=== PATIENT | male | born 1940 | race Two or more races ===

== ENCOUNTER 2019-11-22 12:05 | Inpatient (IN) | payer OTHER ==
[~2019-11-22] VITALS: Ht 162.6 cm; Wt 68.5 kg
[2019-11-28] MEDS ORDERED: PLAVIX75 MG PO (14:34)
[2019-11-28] MEDS ORDERED: SYNTHROID50 MCG PO (14:34)
[2019-11-28] MEDS ORDERED: ACTOS15 MG PO (14:35)
[2019-11-28] MEDS ORDERED: PRAVASTATIN SOD10 MG PO (14:35)
[2019-11-28] MEDS ORDERED: TOPROL XL25 M1 PO (14:36)
[2019-11-28] MEDS ORDERED: JANUVIA25 MG PO (14:36)
[2019-12-04] MEDS ORDERED: JANUVIA100 MG (10:53)
[2019-12-04] MEDS ORDERED: LEVOTHYROXINE25 MC1 (10:53)
[2019-12-04] MEDS ORDERED: PIOGLITAZONE HC30 MG (10:54)
[2019-12-04] MEDS ORDERED: CLOPIDOGREL BIS75 MG (10:54)
[2019-12-04] MEDS ORDERED: PANTOPRAZOLE SO40 MG (10:54)
[2019-12-04] MEDS ORDERED: LOPRESSOR25 MG (10:55)
[2019-12-04] MEDS ORDERED: PRAVASTATIN SOD40 MG (10:55)
[2019-12-13] MEDS ORDERED: LEVAQUIN500 MG PO (13:10)
[2019-12-13] MEDS ORDERED: FLAGYL500MG PO (13:10)
== END 2019-12-13 15:11 | disposition home or self-care (01) | DRG 330 ==
LOC: O/R 12-04 07:36 → SURG 12-04 07:36 → SURH 12-04 09:15 → SURG 12-04 16:21
PROVIDERS: ADMIT Surgery; ATTEND Surgery
PROC: 07TB0ZZ Resection of Mesenteric Lymphatic, Open Approach (ICD-10-PCS; 2019-12-04)
PROC: 0DBU0ZZ Excision of Omentum, Open Approach (ICD-10-PCS; 2019-12-04)
PROC: 0DTF0ZZ Resection of Right Large Intestine, Open Approach (ICD-10-PCS; principal; 2019-12-04 09:15)
PROC: 4A12X4Z Monitoring of Cardiac Electrical Activity, External Approach (ICD-10-PCS; 2019-12-05)
PROC: 4A033R1 Measurement of Arterial Saturation, Peripheral, Percutaneous Approach (ICD-10-PCS; 2019-12-05)
PROC: 05HY33Z Insertion of Infusion Device into Upper Vein, Percutaneous Approach (ICD-10-PCS; 2019-12-08)
PROC: 30233P1 Transfusion of Nonautologous Frozen Red Cells into Peripheral Vein, Percutaneous Approach (ICD-10-PCS; 2019-12-09)
PROC: 0DB68ZX Excision of Stomach, Via Natural or Artificial Opening Endoscopic, Diagnostic (ICD-10-PCS; 2019-12-11)
DX: C18.2 Malignant neoplasm of ascending colon (principal); C78.6 Secondary malignant neoplasm of retroperitoneum and peritoneum; K91.89 Other postprocedural complications and disorders of digestive system; K56.7 Ileus, unspecified; K92.2 Gastrointestinal hemorrhage, unspecified; I11.9 Hypertensive heart disease without heart failure; E03.8 Other specified hypothyroidism; N40.0 Benign prostatic hyperplasia without lower urinary tract symptoms; N18.2 Chronic kidney disease, stage 2 (mild); G47.30 Sleep apnea, unspecified; D50.0 Iron deficiency anemia secondary to blood loss (chronic); D64.9 Anemia, unspecified